=== PATIENT | female | born 1985 | race Caucasian/White ===

== ENCOUNTER 2018-09-10 12:03 | Inpatient (IN) | payer BC ==
[2018-09-10 12:37] VITALS: BMI 36.2
[2018-09-10] MEDS ORDERED: cefOXitin IV 2 gm in Dextrose 2 GM/50 ML BAG IVPB ONE ×2 (12:48→13:31)
[2018-09-10] MEDS ORDERED: Sodium Citrate/Citric Acid 15 ml Sol ONE (13:32)
[2018-09-10 13:33] LABS: SQUAMOUS EPITHIAL 3 /hpf (0-5); URINE BACTERIA RARE (<OCC); URINE BILIRUBIN NEGATIVE (NEGATIVE); URINE BLOOD NEGATIVE (NEGATIVE); URINE CLARITY Hazy (Clear); URINE COLOR Yellow (YELLOW); URINE GLUCOSE (UA) NORMAL (Normal); URINE PROTEIN NEGATIVE (NEGATIVE); URINE UROBILINOGEN NORMAL mg/dL (0.2-1.0)
[2018-09-10 13:37] LABS: BASO % 0.4 % (0.0-2.0); EOS % 0.1 % (0.0-4.0); HEMOGLOBIN 12.5 g/dL (11.0-16.0); LYMPH # 1.3 K/uL (1.0-4.3); LYMPH % 11.1 % (20.0-40.0); MEAN CELL VOLUME 86.2 fL (81.0-99.0); MEAN CORPUSCULAR HEMOGLOBIN 27.7 pg (27.0-31.0); MEAN CORPUSCULAR HGB CONC 32.1 g/dL (33.0-37.0); MEAN PLATELET VOLUME 10.1 fL (7.2-11.7); MONO # 0.5 K/uL (0.0-0.8); MONO % 4.8 % (0.0-10.0); NEUT # 9.6 K/uL (1.8-7.0); NEUT % 83.6 % (50.0-75.0); NRBC % 0.2 % (0.0-2.0); RBC 4.5 Mil/uL (3.80-5.20); RED CELL DISTRIBUTION WIDTH 14.4 % (11.5-14.5); WHITE BLOOD COUNT 11.5 K/uL (4.8-10.8)
[2018-09-10 13:43] LABS: BLOOD UREA NITROGEN 7 mg/dL (7-17); CALCIUM 8.6 mg/dl (8.6-10.4); GFR NON-AFRICAN AMERICAN > 60
[2018-09-10 14:01] LABS: URINE LEUKOCYTE ESTERASE 1+ Leu/uL (Negative)
[2018-09-10 14:14] LABS: HEPATITIS B SURFACE AG Negative (NEGATIVE)
[2018-09-10] MEDS ORDERED: Oxycodone/Acetaminophen 5/325 mg Tab PO PRN (14:18)
--- NOTE | 2018-09-10 14:25 | OBADHP ---
Datetime: 09/10/2018 14:20 Admit Comment, IP Provider: T 38+WEKS CAME WITH CTXS STARTED YESTERDAT MORNING, IRRG, 11/17,NO V B, LOF+FM OBHX 1 X C/S PMH PNV,FOLIC ACID ALL NKDA PSH DEN SOCH DE A/P AT 38=WEKLS IN PAIN/PREVIOUS C/S ADMIT TO L_D NPO/IVF LABS PAIN MA CONT VIRIDIANA AND EFM SKIN ABXS ANTHESEIA AWARE ANTICIPATE C/S Pelvic Type - PN: Adequate Extremities - PN: Normal Abdomen - PN: Normal Back - PN: Normal Breast - PN: Normal Lungs - PN: Normal Heart - PN: Normal Thyroid - PN: Normal Neurologic - PN: Normal HEENT - PN: Normal General - PN: Normal FHR - Baseline A Provider: 130 Contraction Comments Provider: irrg IP Hx Assessment: The History has been Reviewed and is Current Vital Signs Provider: Reviewed; Within Normal Limits IP Chief Complaint: Uterine contractions NICHD Variability Prov Fetus A: Moderate 6-25bpm NICHD Accel Fetus A IP Provider: [id number] FHR Category Provider Fetus A: Category I Dilatation, Provider: 2 Effacement, Provider: 60 Station, Provider: -2 Genitourinary Exam: Normal DTRs - PN: Normal EGA AdmitDate IP: 38.6 IP Adm Impression: Term, intrauterine IP Admit Plan: Admit to unit; Initiate Section protocol
[2018-09-10] MEDS ORDERED: ePHEDrine 50 mg/ml Inj ONE (14:26)
[2018-09-10] MEDS ORDERED: Morphine 1 mg/ml preservative-free Inj(Duramorph) ONE (14:27)
[2018-09-10] MEDS ORDERED: HYDROmorphone 0.5 mg/0.5 ml ISec IVP PRN (15:27)
[2018-09-10] MEDS ORDERED: Oxytocin 20 units in LR 2,000 ML IV ONE (17:56)
[2018-09-11 09:05] LABS: HEMOGLOBIN 11.3 g/dL (11.0-16.0); MEAN CORPUSCULAR HGB CONC 32.5 g/dL (33.0-37.0); MEAN PLATELET VOLUME 10.3 fL (7.2-11.7); RBC 4.04 Mil/uL (3.80-5.20); RED CELL DISTRIBUTION WIDTH 14.1 % (11.5-14.5)
--- NOTE | 2018-09-11 10:01 | OBPPN ---
Datetime: 09/11/2018 09:57 PP Pain Prov: Within normal limits PP Nausea Prov: Denies PP Flatus Prov: No PP Abdomen/Uterus Prov: Normal PP Lochia Prov: Normal PP Extremities Prov: Normal PP C/S Incision Prov: Normal PP Impression Prov: Normal progression PP Plan Prov: Continue present management PP Progress Note Prov: pt was examined at bed side, pain under control,no n/v, tolerating deit,voidi ng,min lochia, flatus+ pod@1 reg deit dc kate pain mamagement cont ppost op care encourage ambulation Vital Signs Provider PP: Reviewed
[2018-09-11] MEDS: Prenatal Multivit/Folic Acid/Iron Tab PO SCH (10:16)
[2018-09-11] MEDS: Oxycodone/Acetaminophen 5/325 mg Tab PO PRN ×2 (10:37→23:17)
[2018-09-11] MEDS ORDERED: Bisacodyl 5mg EC Tab PO ONE ×2 (14:19→18:51)
[2018-09-11] MEDS ORDERED: Tdap Vaccine 0.5 ml Vial (10-64 yrs) IM ONE (14:25)
[2018-09-11 17:36] VITALS: RESP 18
--- NOTE | 2018-09-11 19:53 | OBDS ---
DELIVERY PERSONNEL Delivery Doctor: Duglas Juarez MD Scrub Nurse: Magdalena Gill Electrical Logging Operator: Cynthia Jimenez RN Anesthesiologist: VALENTINO MATERNAL INFORMATION Delivery Anesthesia: Spinal Medications in Delivery: pitocin 20 in ns 1000ml Estimated Blood Loss (ml): 600 Placenta Cultured: Yes Maternal Complications: None Other Maternal Complications: +gbs REPEAT C/S Provider Comments: dr juarez private baby deliverd in telluride. end clean placente to patho agar 03/19 no com LABOR SUMMARY EDC: 09/18/2018 00:00 No. Babies in Womb: 1 Attempted: No Labor Anesthesia: None LABOR INFORMATION Reason for Induction: Not Applicable Oxytocin: N/A Group B Beta Strep: Positive Steroids Given: None Reason Steroids Not Administered: Not Applicable STAGES OF LABOR Stage 3 hrs: 0 Stage 3 min: 0 CSECTION DELIVERY Primary Indication: Repeat Elective CSection Urgency: Elective CSection Incidence: Repeat Labor: N/A Elective: Elective CSection Incision: Lower Uterine Transverse BABY A INFORMATION Delivery Date/Time: 09/10/2018 14:44 Method of Delivery: Born in Route : No : N/A Forceps: N/A Vacuum Extraction: N/A Shoulder Dystocia : No SHOULDER DYSTOCIA BABY A Infant Delivery Date/Time: 09/10/2018 14:44 PRESENTATION/POSITION BABY A Presentation: Cephalic Cephalic Presentation: Vertex Vertex Position: Left Occipital Posterior Breech Presentation: N/A PLACENTA INFORMATION BABY A Placenta Delivery Time : 09/10/2018 14:44 Placenta Method of Delivery: Manual Removal Placenta Status: Delivered SCORES BABY A Heart Rate 1 min: >100 bpm Resp Effort 1 min: Good Cry Reflex Irritability 1 min: Cough or Sneeze or Pulls Away Muscle Tone 1 min: Active Motion Color 1 min: Body [place], Extremities Blue Resuscitation Effort 1 min: Tactile Stimulation SCORE 1 MIN: 9 Heart Rate 5 min: >100 bpm Resp Effort 5 min: Good Cry Reflex Irritability 5 min: Cough or Sneeze or Pulls Away Muscle Tone 5 min: Active Motion Color 5 min: Body [place], Extremities Blue SCORE 5 MIN: 9 INFORMATION BABY A Gestational Age at Delivery: 38.6 Gestational Status: Term Outcome : Liveborn Condition : Stable Infant Sex: Female IDENTIFICATION/MEDS BABY A ID Band Number: [id number] ID Band Location: Left Leg; Left Arm Sensor Applied: Yes Sensor Number: [id number] Sensor Location : Cord Clamp WEIGHT/LENGTH BABY A Infant Birthweight (gms): 3005 Infant Weight (lb): 6 Infant Weight (oz): 10 Length Inches: 18.00 Length cms: 45.7 CORD INFORMATION BABY A No. Cord Vessels: 3 Nuchal Cord : N/A Cord Blood Taken: Yes Infant Suction: Mouth; Nose ASSESSMENT BABY A Complications: None Physical Findings at Delivery: Within Normal Limits Infant Respirations: Appears Normal Machinist Bench/ALS Called : Yes Care By: Dr Isaac Transferred To: Nursery
--- NOTE | 2018-09-12 07:13 | OP ---
PROCEDURE DATE: 09/10/2018 PREOPERATIVE DIAGNOSIS: A 33-year-old 3, para 1 at 38 weeks and 6 days with abdominal pain. POSTOPERATIVE DIAGNOSIS: A 33-year-old 3, para 1 at 38 weeks and 6 days with abdominal pain. PROCEDURE: section. SURGEON: Duglas Juarez MD UPPER DOUBLER: Torey Cruz MD, who was present throughout the surgery. COMPLICATIONS: None. ESTIMATED BLOOD LOSS: 700 mL. ANESTHESIA: Spinal. ANESTHESIOLOGIST: Brooke Baron MD DESCRIPTION OF PROCEDURE: After informed consent was obtained, the patient was brought to the operating room and placed on the table where spinal anesthesia was given. Once the anesthesia was found to be sufficient, she was prepped and draped in a normal sterile fashion. About 2 cm above the pubic bone, a skin incision was made with a knife, and the subcutaneous tissue was cut with the Bovie. The fascia was then excised on both the sides using curved Scott scissors. The fascia was from the site of the umbilicus and then at the site of the pubic bone. Rectus muscle was , peritoneum was lifted up with 2 Allis, it was cut with Metzenbaum scissors and we went into the abdominal cavity. Bladder blade was placed. Bladder flap was created. The lower uterine segment incision was made with a knife. Baby delivered in a IAN position. Cord was clamped and cut. Baby was handed to the awaiting retail cashier associate. Placenta delivered manually and sent off for pathology. Uterus was exteriorized and cleared of all clots and debris. Uterine incision was closed using 1-0 Vicryl in running interlocking fashion. Second layer was closed with the same stitch after that, and the uterus was ____ atonic, so extra Methergine and Pitocin was given. After that, uterus was returned back to abdominal cavity. Gutters were cleared of all the clots and debris. The uterine incision was looked and found to be hemostatic. The peritoneum was closed using a 2-0 Vicryl in a running interlocking fashion. The muscle was closed using a 2-0 Vicryl in running interlocking fashion. Fascia was closed using 1-0 Vicryl in a running interlocking fashion. Skin was closed using 3-0 Monocryl straight needle. The patient tolerated the procedure well. Lap, sponge, and instrument counts were correct x2. Duglas Juarez MD
--- NOTE | 2018-09-12 07:27 | OBPPN ---
Datetime: 09/12/2018 07:25 PP Pain Prov: Within normal limits PP Nausea Prov: Denies PP Flatus Prov: Yes PP BM Prov: Yes PP Abdomen/Uterus Prov: Normal PP Lochia Prov: Normal PP Extremities Prov: Normal PP C/S Incision Prov: Normal PP Impression Prov: Normal progression PP Plan Prov: Continue present management PP Progress Note Prov: pt was seen at bed side, pain under control,no n.v, toretating eit, flatus+ pod#2 cont pnv encoiurage ambulation cont post op care care cont painmana Vital Signs Provider PP: Reviewed; Within Normal Limits
[2018-09-12] MEDS: Prenatal Multivit/Folic Acid/Iron Tab PO SCH (09:46)
[2018-09-13] MEDS: Prenatal Multivit/Folic Acid/Iron Tab PO SCH (09:51)
[2018-09-13 10:42] VITALS: BP 90/55; PULSE 73; TEMP 97.4; O2SAT 98
[2018-09-13] MEDS ORDERED: Influenza Vaccine 60 mcg/0.5 mL SYR (4YR UP) IM ONE (11:00)
== END 2018-09-13 14:00 | disposition home or self-care (01) | DRG 788 ==
LOC: C.EROB 12:03 → C.4D 13:07 → C.4M 17:45
PROVIDERS: ADMIT Obstetrics & Gynecology; ATTEND Obstetrics & Gynecology
PROC: 10D00Z1 Extraction of Products of Conception, Low, Open Approach (ICD-10-PCS; principal; 2018-09-10)
DX: O34.211 Maternal care for low transverse scar from previous cesarean delivery (principal); O99.824 Streptococcus B carrier state complicating childbirth; Z3A.38 38 weeks gestation of pregnancy; Z37.0 Single live birth